=== PATIENT | male | born 1930 | race Caucasian/White ===

== ENCOUNTER 2018-12-25 15:56 | Inpatient (IN) | payer MEDICARE, OTHER ==
[~2018-12-25] VITALS: Ht 188 cm; Wt 81.0 kg
[2018-12-25] VITALS (188 sets, daily range): BP systolic 106–116; BP diastolic 61–65; PULSE 72–73; TEMP 97.2–98.1; O2SAT 80–100
--- NOTE | 2018-12-25 15:10 | NUR ---
Patient arrives via EMS at this time to [facility]. Prior report recieved from ÁLVARO De Santiago at [facility]. Patient assessment and vitals as charted. Patient is confused and combative. Care assumed.
--- NOTE | 2018-12-25 15:15 | NUR ---
Dr. Hoyt rounds at this time.
--- NOTE | 2018-12-25 16:12 | NUR ---
Dr. Junior rounds at this time.
[2018-12-25] MEDS ORDERED: AMOXICILLIN 8751 TAB PO (17:23)
[2018-12-25] MEDS ORDERED: PULMICORT0.5 MG/2 M IH (17:24)
[2018-12-25] MEDS ORDERED: LIPITOR 40MG TA40 MG PO (17:24)
[2018-12-25] MEDS ORDERED: SINEMET 25/101 UDTAB PO (17:25)
[2018-12-25] MEDS ORDERED: CELEXA10 MG PO (17:53)
[2018-12-25] MEDS ORDERED: FLEXERIL5 MG PO (17:54)
[2018-12-25] MEDS ORDERED: MUCINEX 60600 MG/TA1 PO (17:56)
[2018-12-25] MEDS ORDERED: IMDUR 60MG60 MG/TAB PO (17:57)
[2018-12-25] MEDS ORDERED: IPRATROPIUM BROM3 M1 IH (17:57)
[2018-12-25] MEDS ORDERED: NORCO 325 MG-51 TAB PO (17:57)
[2018-12-25] MEDS ORDERED: REMERON 15M15 MG/TA1 PO (17:58)
[2018-12-25] MEDS ORDERED: MYCOSTATIN100000 U/1 TP (17:59)
[2018-12-25] MEDS ORDERED: MIRALAX PA17 GM/Dose PO (18:00)
[2018-12-25] MEDS ORDERED: MIRAPEX 1MG PO (18:00)
[2018-12-25] MEDS ORDERED: COLACE 100100 MG/CAP PO (18:01)
--- NOTE | 2018-12-25 19:00 | NUR ---
RECEIVED REPORT FROM ÁLVARO NOEL. PT RESTING EASILY ON 2L VIA NC. VSS. DAUGHTER,HIMANSHU, AT BEDSIDE. EXTRENAL CATHETER IN PLACE TO GRAVITY DRAINING FRIAS BAG. CALL LIGHT WITHIN REACH.
--- NOTE | 2018-12-25 20:00 | NUR ---
EXTERNAL MALE CATHETER IN PLACE. PER REPORT, PT HAS NOT VOIDED SINCE ADMISSION, WILL CONTINUE TO MONITOR. PER REPORT, SORES AND SKIN TEARS FROM FALL THIS AM AT PA AND DRESSINGS PLACED FROM PREVIOUS FACILITY. RAC IV SITE NOTED TO BE LEAKING UNDER TEGADERM, WILL ADDRESS. DAUGHTER, GILMA AT BEDSIDE, STATES PT HAS BECOME MORE CONFUSED THAN HIS NORMAL OVER THE PAST TWO DAYS. DAUGHTER STATES LAST TIME PT HAD PNEUMONIA HE WAS EXTRA CONFUSED FOR A COUPLE WEEKS UNTIL HE FINALLY GOT WELL ENOUGH. DAUGHTER ALSO STATES THAT PT HAS NOT BEEN TAKING HIS PILLS FOR THE [place] EASILY LAST NIGHT AND THIS MORNING. PT APPEARS TO HAVE ANXIETY EPISODES AND GETS HIMSEFL WORKED UP FOR A COUPLE OF MINUTES AND THEN IS ABLE TO CALM DOWN AND FALLS BACK TO SLEEP. PT NEEDING MULTIPLE REASSURANCE. PT ATTEMPTS TO TALK DURING THESE EPISODES BUT SPEECH IS MOSTLY UNCLEAR.
--- NOTE | 2018-12-25 22:43 | NUR ---
SPOKE WITH [facility] ABOUT HOLD ACKNOWLEDGE ON ABX ON EMAR, AWAITING FOR PHARMACY DOSING FOR ADMINISTRATION.
--- NOTE | 2018-12-25 23:35 | NUR ---
PT CLIMBING OUT OF BED AND VERY AGITATED. UNABLE TO UNDERSTAND PT AND NEEDS BUT OCCASSIONALLY STATES "PEE." BLADDER SCAN PERFORMED AND NOTED TO BE GREATER THAN 650ML IN BLADDER. MAHAMED SHAW NOTIFIED AND ORDERS TO STRAGIHT CATH AT THIS TIME AND IF PT CONTINUES TO HAVE URINARY RETENTION THEN TO PLACE INDWELLING CATHETER. ÁLVARO MARTIN CHARGE AT BEDSIDE FOR ASSIST.
--- NOTE | 2018-12-25 23:50 | NUR ---
STERILE TECHNIQUE PERFORMED, STRAIGHT CATHETER IS UNABLE TO GO IN AND PT IS CLIMBING OUT OF BED IN PAIN R/T HX OF PROSTATE PROBLEMS/CA. COUDE FRIAS CATHETER OBTAINED. DIESEL ENGINE SPECIALIST TO BEDSIDE FOR ASSIST. ÁLVARO MARTIN CONTINUES TO STRUGGLE PLACING F/C AND IS FINALLY ABLE TO GET PAST PROSTATE. MAHAMED SHAW NOTIFIED OF HARD STRAIGHT CATH, ORDERS TO LEAVE FRIAS IN PLACE AND PUT TO GRAVITY BAG. BILATERAL SOFT MITTENS IN PLACE TO HELP PT FROM PULLING AT CATHETER AND IV LINES. AFTER BLADDER STARTS TO DRAIN, PT IS ABLE TO FINALLY CALM DOWN AND REST. PT CLEANED UP AND SHEETS CHANGED. NOTED PT TO FALL ASLEEP AT THIS TIME. PT REMAINS ON 2L VIA NC. VSS. F/C PATENT AND DRAINGING TO GRAVITY EASILY. CLEAR YELLOW URINE NOTED. SEE I&O FLOWSHEET.
[2018-12-26] VITALS (556 sets, daily range): BP systolic 126–149; BP diastolic 73–94; PULSE 69–77; TEMP 96.8–98; O2SAT 76–100
--- NOTE | 2018-12-26 01:06 | NUR ---
RT CALLED FOR TX.
--- NOTE | 2018-12-26 03:00 | NUR ---
NURSE ATTEMPTS TO CLEAN GROIN/LINDSEY AREA AND PLACE NYSTATIN TO REDENNED AREA IN GROIN FOLDS, PT BECOMES COMBATIVE AND YELLS AT NURSE WITH TEETH CLENCHED. UNSUCCESSFUL. PT DOES NOT TALK IN SENTENCES BUT ONLY MUMBLES OCCASSIONAL WORDS. WILL ATTEMPT TO TRY AGAIN AT ANOTHER TIME WHEN PT IS CALMER.
--- NOTE | 2018-12-26 05:15 | NUR ---
PT ATTEMPTING TO GET OOB. PT ABLE TO MAKE OUT A FEW SENTENCES AND ANSWER NURSE IN SHORT REPONSES APPROPRAITELY. PT ABLE TO ASSIST NURSE IN STANDING BRIEFLY TO REPOSITION LINEN AND GET BACK INTO BED. PT APPEARS TO BECOME EXHAUSTED AND INCREASE RR TO HIGH 20s WITH EXERTION. O2 INCREASED TO 3L VIA NC. NO CYANOSIS NOTED AT THIS TIME. F/C PATENT AND DRAINING TO GRAVITY.
[2018-12-26 05:33] LABS: BASO # 0.1 (0.0-0.2); BASO % 0.7 % (0.0-2.0); EOS # 0.1 (0.0-0.7); EOS % 1.9 % (0-4.0); GRAN # 5.4 (1.4-6.5); GRAN % 71.4 % (42.2-75.2); HEMOGLOBIN 10.9 g/dl (13.5-18.0); LYMPH # 1.4 (1.2-3.4); LYMPH % 18.1 % (20.0-51.0); MEAN CELL VOLUME 95 fl (80.0-100.0); MEAN CORPUSCULAR HEMOGLOBIN 28 pg (27.0-31.0); MEAN CORPUSCULAR HGB CONC 30 g/dl (33.0-37.0); MEAN PLATELET VOLUME 8.7 fl (7.4-10.4); MONO # 0.6 (0.1-0.6); MONO % 7.5 % (1.7-9.3); PLATELET COUNT 352 K/mm3 (130-400); RED BLOOD COUNT 3.86 M/mm3 (4.20-5.60); REDCELL DISTRIBUTION WIDTH-CV 14.6 % (11.5-14.5)
[2018-12-26 05:36] LABS: HEMATOCRIT 36.6 % (42.0-52.0)
[2018-12-26 05:44] LABS: CALCIUM 8.4 mg/dL (8.4-10.2); CREATININE, serum 1.47 (0.66-1.25); POTASSIUM 4.3 mmol/L (3.4-5.0)
--- NOTE | 2018-12-26 06:10 | NUR ---
PT APPEARS TO BE MORE ALERT AND ABLE TO STATE FULL NAME. PT ABLE TO RESPOND TO SIMPLE YES AND NO QUESTIONS BUT CONTINUES TO MAKE FREQUENT CONFUSING STATEMENTS AND ENDS UP TRYING TO GET OOB AND PULLS OXYGEN OFF. PT CALM AT THIS TIME AND IS COOPERATIVE WITH CARE. PT ABLE TO SWALLOW SMALL SIPS OF WATER WITHOUT ANY SIGNS OF CHOKING AT THIS TIME. PT ABLE TO SWALLOW PILLS WITHOUT DIFFICULTIES AT THIS TIME, SEE MAR FOR ADMINISTRATION.
--- NOTE | 2018-12-26 07:45 | NUR ---
Vancomycin Initial Dosing Pharmacy Note Ordering provider: Lai Indication/duration: [facility]: SCr 1.47, CrCl ~ 40 Loading dose: 1 gram given 12/25 in [place] [facility] according to notes, and another 1 gram given here on 12/26/18 @ 02:00. Maintenance dose: 1 gram Q24h starting 12/26/18 @ 0800. Trough goal: 15-20 ug/mL Will continue to monitor renal function and adjust doses as needed.
--- NOTE | 2018-12-26 07:52 | NUR ---
Bed alarm on, pt impulsive, confused during bedside shift report, now sleeping. Maintaining continuous line of sight.
--- NOTE | 2018-12-26 10:02 | NUR ---
To Radiology for CT chest via WC on O2 at 2L acc by [employer].
--- NOTE | 2018-12-26 11:02 | NUR ---
Patient lives at [facility] in [place], [place] and plans to return to [facility], skilled upon recovery unless his mental status do not improve and doctor's recommend he would benefit from [facility]. Patient is a poor historian and patient's daughter (Ilda Lou [phone]) is his durable power of rope twisting machine operator and can attest to and made decisions for his medical needs as well as patient's medical history information. Patient's daughter Ilda self-directed to [facility] being patient's primary discharge option. Patient is on 2 liters of oxygen and the last couple of weeks has had a decline in mental status and increased confustion and agitation. Patient uses a walker and wheelchair for mobility assistance as needed, his primary care physician is Kavin Yu, his pharmacy for short-term medications is [facility] ([place]) and [facility] for long-term medications. Patient does have advance directives for healthcare completed (DPOA = daughter Ilda Lou) and he is also a DNR. No further needs at this time and community mental health social worker follow as needed.
--- NOTE | 2018-12-26 14:00 | NUR ---
Pt transferred to ICU room 3 for negative pressure isolation per Dr Hoyt order. Family notified of transfer, understands precautionary due to patient having been on steroids at the time of his negative PPD at [place].
--- NOTE | 2018-12-26 15:00 | NUR ---
Pt now agitated, getting up out of both chair and bed, pulling at lines and tubes. Attempts to reorient are unsuccessful. RN remains in room with patient for safety. Bed alarms in use at all times. Family is in room with patient, questions addressed. MD notified of change.
[2018-12-26 18:51] LABS: MUCOUS Present /lpf; PH 6 (5-8); SQUAMOUS EPITHELIAL None Seen /hpf; URINE APPEARANCE Hazy; URINE BACTERIA Rare /hpf; URINE BILIRUBIN Negative (NEGATIVE); URINE BLOOD 3+ (NEGATIVE); URINE COLOR Yellow; URINE GLUCOSE Negative (NEGATIVE); URINE KETONE 1+ (NEGATIVE); URINE LEUKOCYTE ESTERASE 1+ (NEGATIVE); URINE NITRATE Negative (NEGATIVE); URINE PROTEIN(semi-quant) 1+ (NEGATIVE); URINE RBC >50 /hpf; URINE UROBILINOGEN Negative (NEGATIVE)
[2018-12-26 19:21] LABS: COLLECTION METHOD CATHETER
--- NOTE | 2018-12-26 19:25 | NUR ---
RECEIVED REPORT FROM ÁLVARO FAIRCHILD. PT SITTING UP IN RECLINER SLEEPING AT THIS TIME. FC PATENT AND DRAINING TO GRAVITY. PT ON 5L VIA MASK AT THIS TIME WHILE PT SLEEPS AND IS A MOUTH BREATHER. VSS.
--- NOTE | 2018-12-26 22:30 | NUR ---
PT BECOMES RESTLESS. EXPLAINED TO PT ABOUT CHANGING OUT HIS GOWN TO A CLEAN ONE. PT IS ABLE TO LIFT EACH ARM WHEN REQUESTED. PT IS MUMBLING BUT DOES NOT MAKE SENSE AT THIS TIME. PT FALLS BACK TO SLEEP IN THE RECLINER. VSS. CHAIR ALARM IN PLACE. F/C PATENT AND DRAINING TO GRAVITY.
--- NOTE | 2018-12-26 23:38 | NUR ---
SPOKE WITH MAHAMED SHAW ABOUT UA. NO NEW ORDERS.
[2018-12-27] VITALS: BP 131/68; PULSE 69; TEMP 98.7
--- NOTE | 2018-12-27 00:30 | NUR ---
PT BACK TO BED WTIH X2 ASSIST AND GAIT BELT. PT ABLE TO FOLLOW SIMPLE COMMANDS ON WHERE TO WALK TO, TO GET BACK INTO BED. PT COOPERATIVE WITH CARE. BEDALARM SET. CALL LIGHT WITHIN REACH. PT PLACED ON 3L VIA NC AT THIS TIME. PT FALLS BACK TO SLEEP EASILY.
--- NOTE | 2018-12-27 00:50 | NUR ---
PT AROUSES TO SPEECH AND COOL TOUCH. PT AWAKESUP AGGRESIVE AND YELLS AT NURSE "LEAVE ME ALONE, I WAS SLEEPING SO GOOD, GET OUT OF HERE." BEDALARM REMAINS IN PLACE.
--- NOTE | 2018-12-27 03:50 | NUR ---
PT AROUSES AND SETS OFF BEDALARM. NURSE ASKED PT TO LIE BACK AND PT RESPONDED APPROPRIATELY. PT REQUESTS TO BE COVERED. MOOD PLEASANT AT THIS TIME. BEDALARM RESET.
[2018-12-27 04:00] VITALS: BP 147/87; PULSE 77; TEMP 98.8
--- NOTE | 2018-12-27 05:45 | NUR ---
PT WAVES FOR NURSE TO COME IN THE ROOM. PT REQUESTS FOR SUCTION OF HIS MOUTH TO GET OUT THE MUCUS. PT ALLOWS NURSE TO PERFORM LINDSEY CARE AT THIS TIME AND CLEAN OFF HIS FACE. PT REMAINS CALM AND COOPERATIVE WITH CARE AT THIS TIME. PT ABLE TO ANSWER SIMPEL QUESTIONS BUT STILL NEEDS CONSANT REORIENTATION TO ENVIRONMENT. BEDALARM REMAINS IN PLACE. F/C PATENT AND DRAINING TO GRAVITY. VSS.
--- NOTE | 2018-12-27 06:00 | NUR ---
PT UP TO BSC WITH X1 ASSIST AND GAIT BELT. PT ABLE TO HAVE A BM AT THIS TIME. REPOSITIONED BACK IN BED. BEDALARM RESET AT THIS TIME. AWAITING FOR TRANSFER TO [facility]. PT INFORMED OF TRANSFER AND VERBALIZES UNDERSTANDING AT THIS TIME. WILL NEED REORIENTATION R/T COGNITIVE STATUS.
--- NOTE | 2018-12-27 06:50 | NUR ---
ATTEMPT MADE TO CONTACT DAUGHTER, HIMANSHU TO NOTIFY HER OF PT'S TRANSFER TO [facility]. AWAITING FOR PHONE CALL BACK.
--- NOTE | 2018-12-27 06:56 | NUR ---
NOTIFIED DAUGHTER, HIMANSHU OF PT'S TRANSFER TO [facility].
--- NOTE | 2018-12-27 07:55 | NUR ---
REPORT GIVEN TO ÁLVARO BRAND ON THE MEDICAL FLOOR. PT TRASNFERRED VIA ON 3L VIA NC WITH MASK ON. PT ABLE TO TRANSFER SELF TO AND FROM AND INTO MEDICAL BED. BEDALARM SET ON NEW BED, NURSE NOTIFIED OF PT IN ROOM WITH CALL LIGHT WITHIN REACH. PT CALM AT TIME OF TRANSFER. ALL PERSONAL BELONGINGS SENT WITH PT.
--- NOTE | 2018-12-27 08:00 | NUR ---
PATIENT ADMITED INTO ROOM 359 FROM ICU. PATIENT ON DROP/CONTACT FOR RULE OUT TB. PATIENT CXR WAS REPORTEDLY SUSPICIOUS. ICU REPORTS A COUPLE BLOODY SUPTUMS, CULTURE SENT. PATIENT DOES OCCATIONALY COUGH. A&P LUNG BASES DEMINISHED. 02 @ 3L PER NC TO KEEP SATS IN MID TO LOW 90'S. PATIENT DENIES SOA OR CHEST PAIN. PATIENT IS ORIENTED TO PERSON BUT ISN'T SURE WHERE HE IS. PATIENT HAS HX OF DEMENTIA AND RECENTLY WAS ADMITED TO A SENIOR LIVING IN [place]. ON ADMISSION TO THE SENIOR LIVING THE PATIENT HAD A NEGATIVE TB SKIN TEST. PATIENT HAS ALSO BEEN FALLING A LOT. SEE SKIN ASSESSMENT FOR ALL SKIN TEARS. PATIENT ALSO RISK FOR ASPIRATION. MECHANICAL SOFT DIET. TAKES PILLS OKAY, 1-2 AT A TIME. FRIAS TO DEPENDENT DRAINAGE WITH MOD AMOUNTS OF CLOUDY YELLOW URINE NOTED. RIGHT AC IV TO INT. IV ABX ORDERED. TELE INPLACE. PATIENT HAS EXTENSIVE CARDIAC HX. HEAD TO TOE ASSESSMENT COMPLETE. SITTER AT BEDSIDE DUE TO HX OF DEMENTIA, HIGH FALL RISK, HIGH ASPIRATION RISK AND ABILTY TO GET OUT OF BED ON OWN. PATIENT IN DOUBLE CLOSED DOOR ISOLATION ROOM. SITTER AT BEDSIDE. NO OTHER NEEDS. CALL LIGHT IN REACH. BED ALARM ON.
[2018-12-27 09:04] VITALS: BP 132/63; PULSE 72; TEMP 97.9
[2018-12-27 12:03] LABS: BASO # 0.1 (0.0-0.2); BASO % 0.8 % (0.0-2.0); EOS # 0.1 (0.0-0.7); EOS % 1.7 % (0-4.0); GRAN # 5.4 (1.4-6.5); GRAN % 69.2 % (42.2-75.2); HEMATOCRIT 39.7 % (42.0-52.0); HEMOGLOBIN 12.1 g/dl (13.5-18.0); LYMPH # 1.7 (1.2-3.4); LYMPH % 21.4 % (20.0-51.0); MEAN CELL VOLUME 93 fl (80.0-100.0); MEAN CORPUSCULAR HEMOGLOBIN 28 pg (27.0-31.0); MEAN CORPUSCULAR HGB CONC 31 g/dl (33.0-37.0); MEAN PLATELET VOLUME 8.7 fl (7.4-10.4); MONO # 0.5 (0.1-0.6); MONO % 6.4 % (1.7-9.3); PLATELET COUNT 342 K/mm3 (130-400); RED BLOOD COUNT 4.28 M/mm3 (4.20-5.60); REDCELL DISTRIBUTION WIDTH-CV 14.6 % (11.5-14.5)
[2018-12-27 12:35] LABS: CALCIUM 8.6 mg/dL (8.4-10.2); CREATININE, serum 1.31 (0.66-1.25); POTASSIUM 4.2 mmol/L (3.4-5.0)
[2018-12-27 12:48] VITALS: BP 110/55; PULSE 76; TEMP 97.9
[2018-12-27 15:42] VITALS: BP 157/77; PULSE 79; TEMP 97.4
[2018-12-27 16:33] LABS: RHEUMATOID FACTOR-SCREEN <15 IU/mL (0-29)
[2018-12-27 21:28] VITALS: BP 104/59; PULSE 73; TEMP 97.9
--- NOTE | 2018-12-27 21:58 | NUR ---
Pt A&O x4. Resting in bed with HOB elevated. SpO2 at 90% RA. O2 back on at 2L/NC. Recheck and sats at 96%. Denies any pain except from the brunner cath. Cath secured to leg and draining clear, yellow urine. INT intact right upper forearm. Flushed without difficulty. Slight edema in bilat ankles. HR reg. LS diminished and clear. Call light in reach.
[2018-12-28] VITALS (7 sets, daily range): BP systolic 99–147; BP diastolic 56–71; PULSE 72–84; TEMP 97.6–98.3
--- NOTE | 2018-12-28 07:35 | NUR ---
Pt reports having a fair night. Trying to remember what has been going on the past 2-3 days. Visited with his daughter on the phone last evening. She is to be coming in to day to visit. Very compliant with his care. Bed alarm at all times this shift. End of shift report given to Kevni RN's.
[2018-12-28 08:09] LABS: CALCIUM 8.3 mg/dL (8.4-10.2); CREATININE, serum 1.2 (0.66-1.25); POTASSIUM 4.1 mmol/L (3.4-5.0)
--- NOTE | 2018-12-28 11:59 | NUR ---
PATIENT ASSESSMENT COMPLETED. PATIENT LAYING IN BED. A & 0 X 4, BUT SAYS HE GETS CONFUSED EASILY. HE IS COUGHING UP SOME SMALL AMOUNTS OF CLEAR SPUTUM. SMALL SKIN TEARS TO BILATERAL LOWER ARMS. PATIENT REMAINS IN AIRBORNE ISOLATION PENDING RESULTS OF TB TEST. HE STATES HE FEELS WEAK AND FEELS UNSTEADY WHEN AMBULATING. WILL CALL FOR ASSISTANCE WHEN NEEDING TO GET UP. BED ALARM IS ON. 02 VIA PA AT 2LPM. FRIAS CATHER IS INTACT, URINE IS YELLOW AND CLEAR. CALL LIGHT WITHIN REACH.
--- NOTE | 2018-12-28 15:27 | NUR ---
CANDY contacted Agnieszka at [facility] and confirmed that the patient is a long-term care resident there. Agnieszka reports that they are able to accept the patient back. CANDY faxed updates to [facility] and will continue to follow.
[2018-12-28 16:02] LABS: ANGIOTENSIN CONVERTING ENZYME 22 U/L (16 - 85)
[2018-12-28 18:55] LABS: ANA SCREEN with REFLEX Negative (Negative)
--- NOTE | 2018-12-28 19:14 | NUR ---
Resting in bed. Assessment complete. Lungs dimished and crackles throughout. Denies shortness of breath at this time. Heart sounds normal. Bowels active x4. Pulses strong throughout. Bilateral lower leg edema +1 present. IV to right AC without complications. Zosyn infusing at this time. Bilateral arm skin tears present. Covered with 4X4 dressing, CDI. Denies pain. Alert and orientated. Bishop to dependent drainage-cares provided. Denies other needs at this time. call light in reach.
--- NOTE | 2018-12-28 22:54 | NUR ---
Resting in bed. Denies needs at this time. Call light in reach.
--- NOTE | 2018-12-29 03:16 | NUR ---
Patient reports not remembering being transferred out of ICU and into current room. Patient wanted reassured no one else is needing current room. Patient aware of time, location, and situation. Reorientated patient regarding room situation and ICU transfer from previous day. Denies other needs at this time. Bed alarm in place. Will continue to monitor.
[2018-12-29 03:44] VITALS: BP 140/70; PULSE 72; TEMP 97.4
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
[2018-12-29 06:59] VITALS: BP 143/68; PULSE 76; TEMP 97.9
--- NOTE | 2018-12-29 07:29 | NUR ---
Report given to ÁLVARO Albert
--- NOTE | 2018-12-29 08:26 | NUR ---
Pt awake and alert, some minor confusion, talkative and appropriate, shift assessments complete, no C/O pain at this time, left Pt call light in reach, bed in lowest position.
[2018-12-29 11:06] VITALS: BP 123/61; PULSE 80; TEMP 98
--- NOTE | 2018-12-29 15:21 | NUR ---
CANDY faxed updates to Agnieszka at [facility]. CANDY to continue to follow.
[2018-12-29 15:51] VITALS: BP 128/65; PULSE 78; TEMP 98.4
--- NOTE | 2018-12-29 18:37 | NUR ---
Pt in room, has periods of confusion, can be combative has not been physically aggressive, VS have remained stable.
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
--- NOTE | 2018-12-30 05:34 | NUR ---
Patient has been very easily agitated throughout shift. PRN haldol given 2x and had minimal effect. Patient currently resting in bed. Mitts applied to hands due to inappropriate behavior towards nursing staff. Alert but not oriented. Sitter in room/
--- NOTE | 2018-12-30 06:38 | NUR ---
Report given to ÁLVARO Albert
[2018-12-30 08:54] VITALS: PULSE 75
--- NOTE | 2018-12-30 10:19 | NUR ---
Pt tired and sleepy this morning, easily awakened but falls asleep quickly, medications given without problems, shift assessment complete, left Ptcall light in reach, bed in lowest position.
[2018-12-30 12:40] VITALS: BP 135/80; PULSE 81; TEMP 98.2
--- NOTE | 2018-12-30 14:44 | NUR ---
SW attended clinical rounds. The patient's TB results are still pending. CANDY contacted Lauren Akbar at [facility] to inquire if they can provide transportation over the weekend, if he would be able to discharge then. Lauren reports that they cannot, but that they can during the week. CANDY faxed [facility] updates. CANDY then contacted and updated the patient's daughter, Ilda. Ilda had no questions or concerns for CANDY at this time. SW to continue to follow.
[2018-12-30 14:56] LABS: BASO # 0.1 (0.0-0.2); BASO % 0.8 % (0.0-2.0); EOS # 0.2 (0.0-0.7); EOS % 2.4 % (0-4.0); GRAN % 63.9 % (42.2-75.2); HEMATOCRIT 35.9 % (42.0-52.0); HEMOGLOBIN 10.8 g/dl (13.5-18.0); LYMPH # 1.5 (1.2-3.4); LYMPH % 23.6 % (20.0-51.0); MEAN CELL VOLUME 93 fl (80.0-100.0); MEAN CORPUSCULAR HEMOGLOBIN 28 pg (27.0-31.0); MEAN CORPUSCULAR HGB CONC 30 g/dl (33.0-37.0); MONO # 0.6 (0.1-0.6); PLATELET COUNT 301 K/mm3 (130-400); RED BLOOD COUNT 3.86 M/mm3 (4.20-5.60); REDCELL DISTRIBUTION WIDTH-CV 14.8 % (11.5-14.5)
[2018-12-30 15:05] LABS: CALCIUM 8.5 mg/dL (8.4-10.2); CREATININE, serum 1.28 (0.66-1.25); POTASSIUM 4.2 mmol/L (3.4-5.0)
[2018-12-30 16:08] VITALS: BP 159/74; PULSE 76; TEMP 98.3
--- NOTE | 2018-12-30 18:00 | NUR ---
Pt has been sleeping during the day, when awakened Pt becomes combative.
--- NOTE | 2018-12-30 20:00 | NUR ---
Initial shift assessment done- Awake, alert, pleasant, acting appropriately, oriented to person place and approx time- requesting a snack tonight, very cooperative- did take off hand mitts, o2 at 2L/nc, no SOB, denies pain-- IN airborne Isolation- Bed alarm on--pt using call light appropriately
[2018-12-30 20:30] VITALS: BP 159/78; PULSE 73; TEMP 98.1
[2018-12-30 23:47] VITALS: BP 151/75; PULSE 70; TEMP 98
[2018-12-31 03:09] VITALS: BP 150/75; PULSE 76; TEMP 98.6
[2018-12-31 05:21] LABS: TB GOLD INTERPRETATION Negative (Negative)
--- NOTE | 2018-12-31 05:35 | NUR ---
Has been quiet all night- resting, pleasant, cooperative-VSS, denies pain, VSS, bed alarm on
[2018-12-31 07:17] LABS: BASO # 0.1 (0.0-0.2); BASO % 1.2 % (0.0-2.0); EOS # 0.2 (0.0-0.7); EOS % 2.8 % (0-4.0); GRAN # 4.1 (1.4-6.5); GRAN % 63.3 % (42.2-75.2); HEMATOCRIT 39.4 % (42.0-52.0); LYMPH # 1.7 (1.2-3.4); LYMPH % 25.9 % (20.0-51.0); MEAN CELL VOLUME 91 fl (80.0-100.0); MEAN CORPUSCULAR HEMOGLOBIN 28 pg (27.0-31.0); MEAN CORPUSCULAR HGB CONC 31 g/dl (33.0-37.0); MONO # 0.4 (0.1-0.6); MONO % 6.6 % (1.7-9.3); PLATELET COUNT 299 K/mm3 (130-400); RED BLOOD COUNT 4.32 M/mm3 (4.20-5.60); REDCELL DISTRIBUTION WIDTH-CV 14.7 % (11.5-14.5)
[2018-12-31 07:38] LABS: CALCIUM 8.8 mg/dL (8.4-10.2); CREATININE, serum 1.36 (0.66-1.25); POTASSIUM 4.1 mmol/L (3.4-5.0)
[2018-12-31 07:42] VITALS: BP 160/77; PULSE 75; TEMP 98
[2018-12-31] MEDS ORDERED: CLEOCIN HCL300 MG PO (08:55)
[2018-12-31] MEDS ORDERED: TYLENOL 325MG325 MG PO (08:56)
--- NOTE | 2018-12-31 09:20 | NUR ---
Bishop catheter removed, tip intact, Pt tolerated procedure well.
--- NOTE | 2018-12-31 10:24 | NUR ---
Pt awake upon entry, talkative and appropriate, much less confusion this morning, assisted to restroom, shift assessments complete, left Pt call light in reach, bed in lowest position.
[2018-12-31 11:05] VITALS: BP 152/71; PULSE 72; TEMP 97.9
--- NOTE | 2018-12-31 14:08 | NUR ---
Client Services Coordinator contacted [facility] as patient is to discharge today. SW spoke with Juju who advised [facility] could not provide transportation today but could accept. SW contacted patient's daughter, Ilda to inquire about transportation. Ilda gets off work at [address] in [place] but can leave after work to provide transportation for patient. CANDY spoke with Ilda about patient need for oxygen and Ilda plans to stop by [facility] to fruit picker an oxygen tank before picking up patient. SW to continue to follow.
--- NOTE | 2018-12-31 14:10 | NUR ---
Paste Worker spoke with patient's daughter, Ilda who advised she should get off work around 1400 and will head to [place] [employer] to mushroom picker Oxygen. Ilda advised this should take a couple hours and will be there after to mushroom picker patient. CANDY left note for laborer ammunition assembly to update. CANDY discussed IM form and Ilda advised she understood and would sign. CANDY faxed the form to her place of employment. Patient to discharge this evening.
--- NOTE | 2018-12-31 16:25 | NUR ---
Pt discharged to [place], escorted to entrance via WC, left with family via private auto.
[2019-01-03 11:17] LABS: .HISTOPLASMA ANTIGEN SERUM None Detected (())
[2019-01-03 16:06] LABS: COCCIDIOIDES AB IGG Negative (Negative); COCCIDIOIDES AB IGM Negative (Negative); COCCIDIOIDES CF Negative (Negative)
== END 2018-12-31 16:26 | DRG 193 ==
LOC: ICU 15:56 → IMCU 15:56 → ICU 12-26 13:05 → MEDICAL 12-27 08:28
PROVIDERS: Internal Medicine Pulmonary Disease; Physician Assistant; ADMIT Student in an Organized Health Care Education/Training Program
DX: J18.1 Lobar pneumonia, unspecified organism (principal); J96.91 Respiratory failure, unspecified with hypoxia; J96.92 Respiratory failure, unspecified with hypercapnia; E43 Unspecified severe protein-calorie malnutrition; J44.0 Chronic obstructive pulmonary disease with (acute) lower respiratory infection; G93.40 Encephalopathy, unspecified; I50.32 Chronic diastolic (congestive) heart failure; I25.10 Atherosclerotic heart disease of native coronary artery without angina pectoris; N19 Unspecified kidney failure; G20 Parkinson's disease; F32.9 Major depressive disorder, single episode, unspecified; I08.0 Rheumatic disorders of both mitral and aortic valves; W18.30XA Fall on same level, unspecified, initial encounter; Y92.129 Unspecified place in nursing home as the place of occurrence of the external cause; F41.9 Anxiety disorder, unspecified; R41.0 Disorientation, unspecified; G47.00 Insomnia, unspecified; R33.9 Retention of urine, unspecified; G89.29 Other chronic pain; M54.9 Dorsalgia, unspecified; T50.995A Adverse effect of other drugs, medicaments and biological substances, initial encounter; Z68.24 Body mass index [BMI] 24.0-24.9, adult; Z79.891 Long term (current) use of opiate analgesic; Z99.81 Dependence on supplemental oxygen; Z90.5 Acquired absence of kidney; Z95.1 Presence of aortocoronary bypass graft; Z87.891 Personal history of nicotine dependence; Z87.01 Personal history of pneumonia (recurrent)
CPT/HCPCS: 99222-AI; 99231-AI; 99232-AI; 99233-AI; 99239; J0456; J1630; J1644; J2060; J2543; J3370; J7050